=== PATIENT | male | born 1985 | race Caucasian/White ===

== ENCOUNTER 2020-10-20 04:38 | Emergency (ER) | payer OTHER ==
[2020-10-20 05:10] VITALS: PULSE 112
--- NOTE | 2020-10-20 05:11 | ERPHSYRPT ---
- History of Present Illness Time Seen by Provider: 10/20/20 05:08 Historian: patient Exam Limitations: no limitations Physician History: Jose is a 35-year-old type II diabetic and presents with a complaint of rectal pressure and pain from constipation. He has no history of previous constipation or rectal impaction but this is a new situation. He did have a small amount of the passage of stool several hours prior to coming to the ER but still has rectal pain and pressure. He did take a Metformin and a Mountain Dew in order to try to reduce a bowel movement. This did not work. Timing/Duration: today Activities at Onset: none Quality: cramping Abdominal Pain Onset Location: other (A rectal) Pain Radiation: no radiation Severity of Pain-Max: severe Severity of Pain-Current: mild Modifying Factors: Improves With: nothing Previous symptoms: no prior history Allergies/Adverse Reactions: erythromycin base Allergy (Verified 10/20/20 04:41) Hives Penicillins Allergy (Verified 10/20/20 04:41) Hives Home Medications: Metformin HCl 500 mg [Glucophage 500 MG] 500 mg PO BID 10/20/20 [History] - Review of Systems Constitutional: No Fever, No Chills Eyes: No Symptoms Ears, Nose, & Throat: No Symptoms Respiratory: No Cough, No Dyspnea Cardiac: No Chest Pain, No Edema, No Syncope Abdominal/Gastrointestinal: Constipation, Other (Rectal pain), No Abdominal Pain, No Nausea, No Vomiting, No Diarrhea Genitourinary Symptoms: No Dysuria Musculoskeletal: No Back Pain, No Neck Pain Skin: No Rash Neurological: No Dizziness, No Focal Weakness, No Sensory Changes Psychological: No Symptoms Endocrine: No Symptoms All Other Systems: Reviewed and Negative - Past Medical History Neurological History: No Pertinent History ENT History: No Pertinent History Cardiac History: Hypertension Respiratory History: No Pertinent History Endocrine Medical History: No Pertinent History Musculoskeletal History: Arthritis, Fractures GI Medical History: Hernia, Other History: No Pertinent History Psycho-Social History: Attention Deficit Disorder Male Reproductive Disorders: No Pertinent History Other Medical History: Fracture Lt leg 2 years ago & shoulder(as baby). Ball and Socket repair of leg at age 5 - Past Surgical History Past Surgical History: Yes Neuro Surgical History: No Pertinent History Cardiac: No Pertinent History Respiratory: No Pertinent History Gastrointestinal: Hernia Repair Genitourinary: No Pertinent History Musculoskeletal: Orthopedic Surgery Male Surgical History: No Pertinent History - Social History Smoking Status: Never smoker Exposure to second hand smoke: Yes Drug Use: none - Nursing Vital Signs Nursing Vital Signs: Initial Vital Signs Temperature 98.4 F 10/20/20 04:44 Pulse Rate 112 H 10/20/20 04:44 Respiratory Rate 16 10/20/20 04:44 Blood Pressure 121/84 10/20/20 04:44 O2 Sat by Pulse Oximetry 98 10/20/20 04:44 Pain Scale Pain Intensity 6 - Physical Exam General Appearance: moderate distress, alert Eye Exam: PERRL/EOMI, eyes nml inspection Ears, Nose, Throat Exam: normal ENT inspection, pharynx normal, moist mucous membranes Neck Exam: normal inspection, non-tender, supple, full range of motion Respiratory Exam: normal breath sounds, lungs clear, No respiratory distress Cardiovascular Exam: regular rate/rhythm, normal heart sounds Gastrointestinal/Abdomen Exam: soft, No tenderness, No mass Rectal Exam: deferred Back Exam: normal inspection, normal range of motion, No CVA tenderness, No vertebral tenderness Extremity Exam: normal inspection, normal range of motion, pelvis stable Neurologic Exam: alert, oriented x 3, cooperative, normal mood/affect, nml cerebellar function, sensation nml, No motor deficits Skin Exam: normal color, warm, dry - Course Nursing assessment & vital signs reviewed: Yes - Radiology Exams Abdomen X-ray Interpretation: Interpreted by me, Other (KUB after a large bowel movement showed no remaining rectal impaction there is some moderate stool throughout the remainder of the colon.) Ordered Tests: Active Orders 24 hr Category Date Time Status KUB Stat Exams 10/20/20 04:49 Ordered - Progress Progress: improved Progress Note: 10/20/20 05:10 Patient had a large bowel movement while waiting for his x-ray after the large impaction was evacuated he felt much better but we went ahead with a KUB to document no further need for an enema - Departure Departure Disposition: Home Clinical Impression: Fecal impaction Condition: Stable Critical Care Time: No Referrals: RAMAN SILVERMAN NP [Primary Care Provider] - Instructions: Constipation, Adult (DC)
[2020-10-20 05:22] VITALS: BP 138/75; O2SAT 100
--- NOTE | 2020-10-20 08:28 | XRAY ---
Indication: Abnormal stools. Comparison: None KUB nonacute and nonobstructed. Solid organs unremarkable. Osseous structures intact with minimal degenerative spondylosis. Impression: Negative KUB.
== END 2020-10-20 05:20 | disposition home or self-care (01) ==
LOC: ED 04:38
DX: K56.41 Fecal impaction (principal)
CPT/HCPCS: 74018; 99283

== ENCOUNTER 2024-09-17 03:00 | Emergency (ER) | payer OTHER ==
--- NOTE | 2024-09-17 03:09 | ERPHSYRPT ---
- History of Present Illness Source: patient Exam Limitations: no limitations Timing/Duration: day(s) (1 to 2 days ago) Method of Injury: other (No injury) Quality: other (Wheezing constricting) Severity of Pain-Max: moderate Severity of Pain-Current: moderate Modifying Factors: Improves With: movement Associated Symptoms: muscle spasms, No urinary incontinence, No loss of bowel control, No nausea, No vomiting, No lower back pain Previous symptoms: no prior history, no recent treatment Hx Tetanus, Diphtheria Vaccination/Date Given: Yes Hx Influenza Vaccination/Date Given: Yes Hx Pneumococcal Vaccination/Date Given: No <JELLY PERALES - Last Filed: 09/17/24 07:15> <ASHLEY REAGAN - Last Filed: 09/17/24 18:56> - History of Present Illness Time Seen by Provider: 09/17/24 03:09 Physician History: This is a 39-year-old white male patient who arrives to the emergency department via private vehicle accompanied by family and whose primary care provider is nurse practitioner Naomi with a complaint of squeezing/constricting pain around the right upper quadrant, epigastrium and right flank area. Patient's oxygen saturation level was 87% initially on arrival to the emergency department and he was tachycardic. After settling down and laying flat he is oxygen saturation levels on room air was 96%. However his tachycardia has persisted. He, additionally, complains of shortness of breath and coughing up blackish sputum. He denies tobacco use. He denies alcohol use. He denies illicit drug use. Patient has a history of diabetes, peripheral neuropathy, ADD and arthritis. He has no diagnosed history of coronary artery disease. (JELLY PERALES) Allergies/Adverse Reactions: erythromycin base Allergy (Verified 10/20/20 04:41) Hives Penicillins Allergy (Verified 10/20/20 04:41) Hives Home Medications: Dapagliflozin Propanediol [Farxiga] 1 tab PO DAILY 09/17/24 [History] Gabapentin 600 mg PO TID 09/17/24 [History] Hydrocodone/Acetaminophen [Hydrocodone-Acetamin 5-325 mg] 1 tab PO Q4HPRN PRN MDD 6 09/17/24 [History] Ropinirole HCl 0.5 mg [Requip 0.5 MG] 0.25 mg PO HS 09/17/24 [History] Travel Risk - International Travel Have you traveled outside of the country in past 3 weeks: No - Emerging Infectious Disease Are you exhibiting symptoms associated with any current EIDs: Yes Symptoms: Cough: New Onset, Shortness of Breath <JELLY PERALES - Last Filed: 09/17/24 07:15> - Review of Systems Constitutional: Fever Eyes: No Symptoms Ears, Nose, & Throat: No Symptoms Respiratory: Cough, Dyspnea Cardiac: No Symptoms Abdominal/Gastrointestinal: No Symptoms Genitourinary Symptoms: No Symptoms Musculoskeletal: No Symptoms Skin: No Symptoms Neurological: No Symptoms Psychological: No Symptoms Endocrine: No Symptoms Hematologic/Lymphatic: No Symptoms Immunological/Allergic: No Symptoms All Other Systems: Reviewed and Negative <JELLY PERALES - Last Filed: 09/17/24 07:15> - Past Medical History Pertinent Past Medical History: Yes Neurological History: No Pertinent History ENT History: No Pertinent History Cardiac History: Hypertension Respiratory History: No Pertinent History Endocrine Medical History: No Pertinent History Musculoskeletal History: Arthritis, Fractures GI Medical History: Hernia, Other History: No Pertinent History Psycho-Social History: Attention Deficit Disorder Male Reproductive Disorders: No Pertinent History Other Medical History: Fracture Lt leg 2 years ago & shoulder(as baby). Ball and Socket repair of leg at age 5 - Past Surgical History Past Surgical History: Yes Neuro Surgical History: No Pertinent History Cardiac: No Pertinent History Respiratory: No Pertinent History Gastrointestinal: Hernia Repair Genitourinary: No Pertinent History Musculoskeletal: Orthopedic Surgery Male Surgical History: No Pertinent History - Social History Smoking Status: Never smoker Exposure to second hand smoke: Yes Drug Use: none <JELLY PERALES - Last Filed: 09/17/24 07:15> - Physical Exam General Appearance: no apparent distress, alert, anxiety Eye Exam: PERRL/EOMI, eyes nml inspection Ears, Nose, Throat Exam: normal ENT inspection, moist mucous membranes Neck Exam: normal inspection, non-tender, supple, full range of motion Respiratory Exam: lungs clear, airway intact, diminished breath sounds (Bilateral bases), No chest tenderness, No respiratory distress, No accessory muscle use Cardiovascular Exam: tachycardia Gastrointestinal Exam: soft, normal bowel sounds, tenderness (Right upper quadrant to palpation) Rectal Exam: not done Back Exam: normal inspection, normal range of motion, No CVA tenderness, No vertebral tenderness Extremity Exam: normal inspection, normal range of motion, pelvis stable Neurologic Exam: alert, oriented x 3, cooperative, yarn sizer II-XII nml as tested, nml cerebellar function, nml station & gait, sensation nml Skin Exam: normal color, warm, dry Lymphatic Exam: No adenopathy SpO2 Interpretation: normal O2 Delivery: Room Air <JELLY PERALES - Last Filed: 09/17/24 07:15> - Nursing Vital Signs Nursing Vital Signs: Initial Vital Signs Temperature 100.1 F 09/17/24 03:00 Pulse Rate 131 H 09/17/24 03:00 Respiratory Rate 24 09/17/24 03:00 Blood Pressure 182/105 09/17/24 03:00 O2 Sat by Pulse Oximetry 98 09/17/24 03:00 Pain Scale Pain Intensity 3 - Course Nursing assessment & vital signs reviewed: Yes <JELLY PERALES - Last Filed: 09/17/24 07:15> Ordered Tests: Active Orders 24 hr Category Date Time Status Dry Transfer Man STAT Care 09/17/24 03:23 Completed EKG-ER Only STAT Care 09/17/24 03:23 Completed IV Insertion STAT Care 09/17/24 03:23 Completed Oxygen-ED Only Nasal Cannula 2 lpm Care 09/17/24 07:00 Completed Pulse Oximetry (ED) STAT Care 09/17/24 03:23 Completed ABDOMEN AND PELVIS W/0 CONTRAS [CT] Stat Exams 09/17/24 05:23 Completed CHEST WITH CONTRAST [CT] Stat Exams 09/17/24 05:23 Completed AMYLASE Stat Lab 09/17/24 03:41 Completed BLOOD CULTURE Stat Lab 09/17/24 03:47 Received CBC W DIFF Stat Lab 09/17/24 03:41 Completed CMP Stat Lab 09/17/24 03:41 Completed D-DIMER QUANTITATIVE Stat Lab 09/17/24 03:41 Completed LIPASE Stat Lab 09/17/24 03:41 Completed Lactic Acid Stat Lab 09/17/24 03:23 Completed MAGNESIUM Stat Lab 09/17/24 03:41 Completed MONO SCREEN Stat Lab 09/17/24 03:41 Completed NT PRO BNPII Stat Lab 09/17/24 03:41 Completed POCT GLUCOSE Stat Lab 09/17/24 07:47 Completed POCT GLUCOSE Stat Lab 09/17/24 09:26 Completed POCT GLUCOSE Stat Lab 09/17/24 10:54 Completed PROCALCITONIN Stat Lab 09/17/24 03:41 Completed TROPONIN Q4H Lab 09/17/24 03:41 Completed TROPONIN Q4H Lab 09/17/24 07:36 Completed UA W/RFX UR CULTURE Stat Lab 09/17/24 06:55 Completed VBG [VENOUS BLOOD GAS] Stat Lab 09/17/24 07:43 Completed Medication Summary Discontinued Medications Generic Name Dose Route Start Last Admin Trade Name Bill PRN Reason Stop Dose Admin Acetaminophen 650 mg 09/17/24 06:46 09/17/24 06:58 Acetaminophen 325 Mg Tablet PO 09/17/24 06:47 650 mg STAT ONE Administration Acetaminophen Confirm 09/17/24 06:56 Acetaminophen 325 Mg Tablet Administered 09/17/24 06:57 Dose 650 mg .ROUTE .STK-MED ONE Sodium Chloride 1,000 mls @ 100 mls/hr 09/17/24 03:30 09/17/24 03:37 Sodium Chloride 0.9% 1000 Ml IV 10/17/24 03:29 100 mls/hr .Q10H GEOVANNA Administration Levofloxacin/Dextrose 750 mg in 150 mls @ 100 mls/hr 09/17/24 07:46 09/17/24 10:00 Levofloxacin 750mg/150ml D5w IV 09/17/24 09:15 Infused STAT STA Infusion Metronidazole 500 mg in 100 mls @ 200 mls/hr 09/17/24 07:47 09/17/24 08:22 Flagyl 500 Mg Ivpb IV 09/17/24 08:16 Infused STAT STA Infusion Metronidazole Confirm 09/17/24 07:49 Flagyl 500 Mg Ivpb Administered 09/17/24 07:50 Dose 500 mg in 100 mls @ ud IV .STK-MED ONE Levofloxacin/Dextrose Confirm 09/17/24 08:24 Levofloxacin 500mg/100ml D5w Administered 09/17/24 08:25 Dose 500 mg in 100 mls @ ud IV .STK-MED ONE Levofloxacin/Dextrose Confirm 09/17/24 08:24 Levaquin 250mg/50ml D5w Administered 09/17/24 08:25 Dose 250 mg in 50 mls @ ud IV .STK-MED ONE Sodium Chloride Confirm 09/17/24 03:36 Sodium Chloride 0.9% 1000 Ml Administered 09/17/24 03:37 Dose 1,000 mls @ ud .ROUTE .STK-MED ONE Insulin Human Lispro 10 unit 09/17/24 07:48 09/17/24 07:52 Insulin Lispro 1 Unit SQ 09/17/24 07:49 10 unit STAT ONE Administration Insulin Human Lispro Confirm 09/17/24 07:51 Insulin Lispro 1 Unit Administered 09/17/24 07:52 Dose 10 unit .ROUTE .STK-MED ONE Morphine Sulfate 4 mg 09/17/24 06:52 09/17/24 06:58 Morphine Sulfate 4 Mg/Ml Injection IV 09/17/24 06:53 4 mg STAT ONE Administration Morphine Sulfate Confirm 09/17/24 06:56 Morphine Sulfate 4 Mg/Ml Injection Administered 09/17/24 06:57 Dose 4 mg .ROUTE .STK-MED ONE Morphine Sulfate 2 mg 09/17/24 08:30 09/17/24 08:37 Morphine Sulfate 2 Mg/Ml Inj IV 09/17/24 08:31 2 mg STAT ONE Administration Morphine Sulfate Confirm 09/17/24 08:37 Morphine Sulfate 2 Mg/Ml Inj Administered 09/17/24 08:38 Dose 2 mg .ROUTE .STK-MED ONE Morphine Sulfate 2 mg 09/17/24 10:22 09/17/24 10:25 Morphine Sulfate 2 Mg/Ml Inj IV 09/17/24 10:23 2 mg STAT ONE Administration Morphine Sulfate Confirm 09/17/24 10:24 Morphine Sulfate 2 Mg/Ml Inj Administered 09/17/24 10:25 Dose 2 mg .ROUTE .STK-MED ONE Ondansetron HCl 4 mg 09/17/24 06:52 09/17/24 06:58 Ondansetron Hcl 4 Mg/2 Ml Vial IV 09/17/24 06:53 4 mg STAT ONE Administration Ondansetron HCl Confirm 09/17/24 06:56 Ondansetron Hcl 4 Mg/2 Ml Vial Administered 09/17/24 06:57 Dose 4 mg .ROUTE .STK-MED ONE Lab/Rad Data: Laboratory Result Diagrams 09/17/24 03:41 09/17/24 03:41 Laboratory Results 09/17/24 09/17/24 09/17/24 Range/Units 10:54 09:26 07:47 WBC (4.23-9.07) x10^3/uL RBC (4.63-6.08) x10^6/uL Hgb (13.7-17.5) g/dL Hct (40.1-51.0) % MCV (79.0-92.2) fL MCH (25.7-32.2) pg MCHC (32.3-36.5) g/dL RDW (11.6-14.4) % Plt Count (163-337) x10^3/uL MPV (9.4-12.4) fL Gran % (34.0-67.9) % Immature Gran % (Auto) (0.001-0.429) % Nucleat RBC Rel Count (0.00-0.2) % Eos # (Auto) (0.04-0.54) x10^3/uL Immature Gran # (Auto) (0.001-0.031) x10^3u/L Absolute Lymphs (auto) (1.32-3.57) x10^3/uL Absolute Monos (auto) (0.30-0.82) x10^3/uL Absolute Nucleated RBC (0.00-0.012) x10^3u/L Lymphocytes % (21.8-53.1) % Monocytes % (5.3-12.2) % Eosinophils % (0.8-7.0) % Basophils % (0.2-1.2) % Absolute Granulocytes (1.78-5.38) x10^3/uL Basophils # (0.01-0.08) x10^3/uL D-Dimer (0.0-0.50) mg/L pO2/FiO2 Ratio % VBG pH (7.32-7.42) VBG pCO2 at Pat Temp (42-55) mm/Hg VBG pO2 at Pat Temp (25-40) mm/Hg VBG HCO3 (22-28) meq/L VBG O2 Sat (Juan) (95-100) VBG Base Excess (-2.0-2.0) VBG Hemoglobin VBG Carboxyhemoglobin (0.0-6.9) % T HGB POC Potassium (3.5-5.1) Sodium (135-145) mmol/L Potassium (3.5-5.1) mmol/L Chloride (98-107) mmol/L Carbon Dioxide (22-30) mmol/L Anion Gap (5-15) MEQ/L BUN (9-20) mg/dL Creatinine (0.66-1.25) mg/dL Estimated GFR ML/MIN Glucose (74-106) mg/dL POC Glucometer 174 H 196 H 258 H (74 to 106) mg/dL Lactic Acid (0.4-2.0) Calcium (8.4-10.2) mg/dL Magnesium (1.6-2.3) mg/dL Total Bilirubin (0.2-1.3) mg/dL AST (17-59) U/L ALT (0-50) U/L Alkaline Phosphatase (38-126) U/L Troponin I (0.000-0.033) ng/mL NT-Pro-B Natriuret Pep (<300) pg/mL Serum Total Protein (6.3-8.2) g/dL Albumin (3.5-5.0) g/dL Amylase (30-110) U/L Lipase (23-300) U/L Procalcitonin (0.030-0.080) ng/mL Urine Color (Yellow) Urine Appearance (Clear) Urine pH (4.6-8.0) Ur Specific [place] (1.005-1.030) Urine Protein (Negative) Urine Glucose (UA) (Negative) mg/dL Urine Ketones (Negative) Urine Blood (Negative) Urine Nitrite (Negative) Urine Bilirubin (Negative) Urine Urobilinogen (0.2) mg/dL Ur Leukocyte Esterase (Negative) U Hyaline Cast (Auto) (0-2) /LPF Urine Microscopic RBC (0-5) /HPF Urine Microscopic WBC (0-5) /HPF Ur Epithelial Cells (None Seen) /HPF Urine Bacteria (None Seen) /HPF Urine Culture Reflexed (NO) Monoscreen (NEGATIVE) Influenza Type A Ag (NEGATIVE) Influenza Type B Ag (NEGATIVE) RSV (PCR) (NEGATIVE) SARS-CoV-2 (PCR) (NEGATIVE) 09/17/24 09/17/24 09/17/24 Range/Units 07:43 07:36 06:55 WBC (4.23-9.07) x10^3/uL RBC (4.63-6.08) x10^6/uL Hgb (13.7-17.5) g/dL Hct (40.1-51.0) % MCV (79.0-92.2) fL MCH (25.7-32.2) pg MCHC (32.3-36.5) g/dL RDW (11.6-14.4) % Plt Count (163-337) x10^3/uL MPV (9.4-12.4) fL Gran % (34.0-67.9) % Immature Gran % (Auto) (0.001-0.429) % Nucleat RBC Rel Count (0.00-0.2) % Eos # (Auto) (0.04-0.54) x10^3/uL Immature Gran # (Auto) (0.001-0.031) x10^3u/L Absolute Lymphs (auto) (1.32-3.57) x10^3/uL Absolute Monos (auto) (0.30-0.82) x10^3/uL Absolute Nucleated RBC (0.00-0.012) x10^3u/L Lymphocytes % (21.8-53.1) % Monocytes % (5.3-12.2) % Eosinophils % (0.8-7.0) % Basophils % (0.2-1.2) % Absolute Granulocytes (1.78-5.38) x10^3/uL Basophils # (0.01-0.08) x10^3/uL D-Dimer (0.0-0.50) mg/L pO2/FiO2 Ratio 28.0 % VBG pH 7.44 H (7.32-7.42) VBG pCO2 at Pat Temp 40 L (42-55) mm/Hg VBG pO2 at Pat Temp 76 H (25-40) mm/Hg VBG HCO3 27.2 (22-28) meq/L VBG O2 Sat (Juan) 97.9 (95-100) VBG Base Excess 2.8 H (-2.0-2.0) VBG Hemoglobin 14.0 VBG Carboxyhemoglobin 1.9 (0.0-6.9) % T HGB POC Potassium 4.3 (3.5-5.1) Sodium (135-145) mmol/L Potassium (3.5-5.1) mmol/L Chloride (98-107) mmol/L Carbon Dioxide (22-30) mmol/L Anion Gap (5-15) MEQ/L BUN (9-20) mg/dL Creatinine (0.66-1.25) mg/dL Estimated GFR ML/MIN Glucose (74-106) mg/dL POC Glucometer (74 to 106) mg/dL Lactic Acid (0.4-2.0) Calcium (8.4-10.2) mg/dL Magnesium (1.6-2.3) mg/dL Total Bilirubin (0.2-1.3) mg/dL AST (17-59) U/L ALT (0-50) U/L Alkaline Phosphatase (38-126) U/L Troponin I < 0.012 (0.000-0.033) ng/mL NT-Pro-B Natriuret Pep (<300) pg/mL Serum Total Protein (6.3-8.2) g/dL Albumin (3.5-5.0) g/dL Amylase (30-110) U/L Lipase (23-300) U/L Procalcitonin (0.030-0.080) ng/mL Urine Color Yellow (Yellow) Urine Appearance Clear (Clear) Urine pH 7.5 (4.6-8.0) Ur Specific [place] >=1.030 A (1.005-1.030) Urine Protein Trace A (Negative) Urine Glucose (UA) 500 A (Negative) mg/dL Urine Ketones Negative (Negative) Urine Blood Negative (Negative) Urine Nitrite Negative (Negative) Urine Bilirubin Negative (Negative) Urine Urobilinogen 4.0 A (0.2) mg/dL Ur Leukocyte Esterase Negative (Negative) U Hyaline Cast (Auto) NONE SEEN (0-2) /LPF Urine Microscopic RBC 0-2 (0-5) /HPF Urine Microscopic WBC 0-2 (0-5) /HPF Ur Epithelial Cells None Seen (None Seen) /HPF Urine Bacteria None Seen (None Seen) /HPF Urine Culture Reflexed NO (NO) Monoscreen (NEGATIVE) Influenza Type A Ag (NEGATIVE) Influenza Type B Ag (NEGATIVE) RSV (PCR) (NEGATIVE) SARS-CoV-2 (PCR) (NEGATIVE) 03/09/17/24 09/17/24 Range/Units 03:41 03:41 03:41 WBC (4.23-9.07) x10^3/uL RBC (4.63-6.08) x10^6/uL Hgb (13.7-17.5) g/dL Hct (40.1-51.0) % MCV (79.0-92.2) fL MCH (25.7-32.2) pg MCHC (32.3-36.5) g/dL RDW (11.6-14.4) % Plt Count (163-337) x10^3/uL MPV (9.4-12.4) fL Gran % (34.0-67.9) % Immature Gran % (Auto) (0.001-0.429) % Nucleat RBC Rel Count (0.00-0.2) % Eos # (Auto) (0.04-0.54) x10^3/uL Immature Gran # (Auto) (0.001-0.031) x10^3u/L Absolute Lymphs (auto) (1.32-3.57) x10^3/uL Absolute Monos (auto) (0.30-0.82) x10^3/uL Absolute Nucleated RBC (0.00-0.012) x10^3u/L Lymphocytes % (21.8-53.1) % Monocytes % (5.3-12.2) % Eosinophils % (0.8-7.0) % Basophils % (0.2-1.2) % Absolute Granulocytes (1.78-5.38) x10^3/uL Basophils # (0.01-0.08) x10^3/uL D-Dimer 1.50 H* (0.0-0.50) mg/L pO2/FiO2 Ratio % VBG pH (7.32-7.42) VBG pCO2 at Pat Temp (42-55) mm/Hg VBG pO2 at Pat Temp (25-40) mm/Hg VBG HCO3 (22-28) meq/L VBG O2 Sat (Juan) (95-100) VBG Base Excess (-2.0-2.0) VBG Hemoglobin VBG Carboxyhemoglobin (0.0-6.9) % T HGB POC Potassium (3.5-5.1) Sodium (135-145) mmol/L Potassium (3.5-5.1) mmol/L Chloride (98-107) mmol/L Carbon Dioxide (22-30) mmol/L Anion Gap (5-15) MEQ/L BUN (9-20) mg/dL Creatinine (0.66-1.25) mg/dL Estimated GFR ML/MIN Glucose (74-106) mg/dL POC Glucometer (74 to 106) mg/dL Lactic Acid (0.4-2.0) Calcium (8.4-10.2) mg/dL Magnesium (1.6-2.3) mg/dL Total Bilirubin (0.2-1.3) mg/dL AST (17-59) U/L ALT (0-50) U/L Alkaline Phosphatase (38-126) U/L Troponin I (0.000-0.033) ng/mL NT-Pro-B Natriuret Pep (<300) pg/mL Serum Total Protein (6.3-8.2) g/dL Albumin (3.5-5.0) g/dL Amylase (30-110) U/L Lipase (23-300) U/L Procalcitonin 0.107 H (0.030-0.080) ng/mL Urine Color (Yellow) Urine Appearance (Clear) Urine pH (4.6-8.0) Ur Specific [place] (1.005-1.030) Urine Protein (Negative) Urine Glucose (UA) (Negative) mg/dL Urine Ketones (Negative) Urine Blood (Negative) Urine Nitrite (Negative) Urine Bilirubin (Negative) Urine Urobilinogen (0.2) mg/dL Ur Leukocyte Esterase (Negative) U Hyaline Cast (Auto) (0-2) /LPF Urine Microscopic RBC (0-5) /HPF Urine Microscopic WBC (0-5) /HPF Ur Epithelial Cells (None Seen) /HPF Urine Bacteria (None Seen) /HPF Urine Culture Reflexed (NO) Monoscreen (NEGATIVE) Influenza Type A Ag NEGATIVE (NEGATIVE) Influenza Type B Ag NEGATIVE (NEGATIVE) RSV (PCR) NEGATIVE (NEGATIVE) SARS-CoV-2 (PCR) NEGATIVE (NEGATIVE) 09/17/24 09/17/24 09/17/24 Range/Units 03:41 03:41 03:41 WBC (4.23-9.07) x10^3/uL RBC (4.63-6.08) x10^6/uL Hgb (13.7-17.5) g/dL Hct (40.1-51.0) % MCV (79.0-92.2) fL MCH (25.7-32.2) pg MCHC (32.3-36.5) g/dL RDW (11.6-14.4) % Plt Count (163-337) x10^3/uL MPV (9.4-12.4) fL Gran % (34.0-67.9) % Immature Gran % (Auto) (0.001-0.429) % Nucleat RBC Rel Count (0.00-0.2) % Eos # (Auto) (0.04-0.54) x10^3/uL Immature Gran # (Auto) (0.001-0.031) x10^3u/L Absolute Lymphs (auto) (1.32-3.57) x10^3/uL Absolute Monos (auto) (0.30-0.82) x10^3/uL Absolute Nucleated RBC (0.00-0.012) x10^3u/L Lymphocytes % (21.8-53.1) % Monocytes % (5.3-12.2) % Eosinophils % (0.8-7.0) % Basophils % (0.2-1.2) % Absolute Granulocytes (1.78-5.38) x10^3/uL Basophils # (0.01-0.08) x10^3/uL D-Dimer (0.0-0.50) mg/L pO2/FiO2 Ratio % VBG pH (7.32-7.42) VBG pCO2 at Pat Temp (42-55) mm/Hg VBG pO2 at Pat Temp (25-40) mm/Hg VBG HCO3 (22-28) meq/L VBG O2 Sat (Juan) (95-100) VBG Base Excess (-2.0-2.0) VBG Hemoglobin VBG Carboxyhemoglobin (0.0-6.9) % T HGB POC Potassium (3.5-5.1) Sodium 138 (135-145) mmol/L Potassium 4.5 (3.5-5.1) mmol/L Chloride 96 L (98-107) mmol/L Carbon Dioxide 31 H (22-30) mmol/L Anion Gap 15.4 H (5-15) MEQ/L BUN 10 (9-20) mg/dL Creatinine 0.74 (0.66-1.25) mg/dL Estimated GFR 118.2 ML/MIN Glucose 307 H (74-106) mg/dL POC Glucometer (74 to 106) mg/dL Lactic Acid (0.4-2.0) Calcium 9.2 (8.4-10.2) mg/dL Magnesium 2.2 (1.6-2.3) mg/dL Total Bilirubin 0.70 (0.2-1.3) mg/dL AST 33 (17-59) U/L ALT 27 (0-50) U/L Alkaline Phosphatase 151 H (38-126) U/L Troponin I < 0.012 (0.000-0.033) ng/mL NT-Pro-B Natriuret Pep < 20.0 (<300) pg/mL Serum Total Protein 8.2 (6.3-8.2) g/dL Albumin 4.4 (3.5-5.0) g/dL Amylase 38 (30-110) U/L Lipase 52 (23-300) U/L Procalcitonin (0.030-0.080) ng/mL Urine Color (Yellow) Urine Appearance (Clear) Urine pH (4.6-8.0) Ur Specific [place] (1.005-1.030) Urine Protein (Negative) Urine Glucose (UA) (Negative) mg/dL Urine Ketones (Negative) Urine Blood (Negative) Urine Nitrite (Negative) Urine Bilirubin (Negative) Urine Urobilinogen (0.2) mg/dL Ur Leukocyte Esterase (Negative) U Hyaline Cast (Auto) (0-2) /LPF Urine Microscopic RBC (0-5) /HPF Urine Microscopic WBC (0-5) /HPF Ur Epithelial Cells (None Seen) /HPF Urine Bacteria (None Seen) /HPF Urine Culture Reflexed (NO) Monoscreen NEGATIVE (NEGATIVE) Influenza Type A Ag (NEGATIVE) Influenza Type B Ag (NEGATIVE) RSV (PCR) (NEGATIVE) SARS-CoV-2 (PCR) (NEGATIVE) 09/17/24 09/17/24 Range/Units 03:41 03:23 WBC 15.3 H (4.23-9.07) x10^3/uL RBC 5.58 (4.63-6.08) x10^6/uL Hgb 14.7 (13.7-17.5) g/dL Hct 45.4 (40.1-51.0) % MCV 81.4 (79.0-92.2) fL MCH 26.3 (25.7-32.2) pg MCHC 32.4 (32.3-36.5) g/dL RDW 13.1 (11.6-14.4) % Plt Count 289 (163-337) x10^3/uL MPV 9.5 (9.4-12.4) fL Gran % 79.5 H (34.0-67.9) % Immature Gran % (Auto) 0.4 (0.001-0.429) % Nucleat RBC Rel Count 0.0 (0.00-0.2) % Eos # (Auto) 0.16 (0.04-0.54) x10^3/uL Immature Gran # (Auto) 0.06 H (0.001-0.031) x10^3u/L Absolute Lymphs (auto) 1.72 (1.32-3.57) x10^3/uL Absolute Monos (auto) 1.11 H (0.30-0.82) x10^3/uL Absolute Nucleated RBC 0.00 (0.00-0.012) x10^3u/L Lymphocytes % 11.3 L (21.8-53.1) % Monocytes % 7.3 (5.3-12.2) % Eosinophils % 1.0 (0.8-7.0) % Basophils % 0.5 (0.2-1.2) % Absolute Granulocytes 12.16 H (1.78-5.38) x10^3/uL Basophils # 0.07 (0.01-0.08) x10^3/uL D-Dimer (0.0-0.50) mg/L pO2/FiO2 Ratio % VBG pH (7.32-7.42) VBG pCO2 at Pat Temp (42-55) mm/Hg VBG pO2 at Pat Temp (25-40) mm/Hg VBG HCO3 (22-28) meq/L VBG O2 Sat (Juan) (95-100) VBG Base Excess (-2.0-2.0) VBG Hemoglobin VBG Carboxyhemoglobin (0.0-6.9) % T HGB POC Potassium (3.5-5.1) Sodium (135-145) mmol/L Potassium (3.5-5.1) mmol/L Chloride (98-107) mmol/L Carbon Dioxide (22-30) mmol/L Anion Gap (5-15) MEQ/L BUN (9-20) mg/dL Creatinine (0.66-1.25) mg/dL Estimated GFR ML/MIN Glucose (74-106) mg/dL POC Glucometer (74 to 106) mg/dL Lactic Acid 1.5 (0.4-2.0) Calcium (8.4-10.2) mg/dL Magnesium (1.6-2.3) mg/dL Total Bilirubin (0.2-1.3) mg/dL AST (17-59) U/L ALT (0-50) U/L Alkaline Phosphatase (38-126) U/L Troponin I (0.000-0.033) ng/mL NT-Pro-B Natriuret Pep (<300) pg/mL Serum Total Protein (6.3-8.2) g/dL Albumin (3.5-5.0) g/dL Amylase (30-110) U/L Lipase (23-300) U/L Procalcitonin (0.030-0.080) ng/mL Urine Color (Yellow) Urine Appearance (Clear) Urine pH (4.6-8.0) Ur Specific [place] (1.005-1.030) Urine Protein (Negative) Urine Glucose (UA) (Negative) mg/dL Urine Ketones (Negative) Urine Blood (Negative) Urine Nitrite (Negative) Urine Bilirubin (Negative) Urine Urobilinogen (0.2) mg/dL Ur Leukocyte Esterase (Negative) U Hyaline Cast (Auto) (0-2) /LPF Urine Microscopic RBC (0-5) /HPF Urine Microscopic WBC (0-5) /HPF Ur Epithelial Cells (None Seen) /HPF Urine Bacteria (None Seen) /HPF Urine Culture Reflexed (NO) Monoscreen (NEGATIVE) Influenza Type A Ag (NEGATIVE) Influenza Type B Ag (NEGATIVE) RSV (PCR) (NEGATIVE) SARS-CoV-2 (PCR) (NEGATIVE) - Progress Progress: improved, pain not gone completely Counseled pt/family regarding: lab results, diagnosis, rad results <JELLY PERALES - Last Filed: 09/17/24 07:15> - Progress Discussed with DrDougie: Other (Vianney) Will see patient in: hospital (full admit) <ASHLEY REAGAN - Last Filed: 09/17/24 18:56> - Progress Progress Note: 09/17/24 03:33 My medical decision making and the assignment of moderate complexity to this patient's medical issue today is based on review of the patient's past medical history, review of the patient's medication list, history present illness and physical findings on examination. The workup in this patient includes placement of intravenous line, infusion of low rate crystalloid solution, CBC, CMP, amylase, lipase, troponin level, twelve-lead EKG, procalcitonin level, D-dimer level, magnesium level. If the D-dimer is elevated we will perform a CT scan of the chest with contrast. If the D-dimer is normal we will perform a CT scan of the chest without contrast as well as a CT scan of the abdomen pelvis without contrast. Differential diagnosis includes but is not limited to myocardial infarction, pulmonary embolus, pneumonia, electrolyte abnormalities, arrhythmia 09/17/24 07:15 I interpreted the patient's laboratory data results. Patient has a leukocytosis, hyperglycemia, elevated D-dimer, the remainder of the labs that have returned show no acute, emergent medical issue. The urinalysis is pending. The CT scan of the abdomen pelvis without contrast was interpreted by the radiologist and I reviewed the impression. The impression states dilated appendix without periappendiceal fat stranding. There is right lower lobe consolidation. There is a large right inguinal hernia containing fat and small fat-containing umbilical hernia. I am transferring care of this patient to Dr. Reagan at shift change. We have discussed the results of the testing that has returned. He is going to follow- up on the outstanding tests results and make final disposition. (JELLY PERALES) 09/17/24 07:48 Assumed care at 0700 with CTA chest/abd/pelvis pending. They have resulted and show RLL infiltrate with central necrosis concerning for abscess, right minimal pleural effusion, no PE, appendix dilated to 10mm without periappendiceal fat stranding and no RLQ abd pain, large right inguinal hernia containing fat and a small fat containing umbilical hernia. He is diabetic with glucose 307 today, gap 15.4, K 4.5. Will order ABG to check pH. Repeat POC shows glucose of 258 so 10u SSI given. Patient has allergy to PCN to Levofloxacin and Flagyl started today. We don't have IR available on weekends at our facility so transfer request to [facility] made today. I spoke with Dr. Faith who acccepts for admission at 0755. (ASHLEY REAGAN) - Departure Departure Disposition: Observation Critical Care Time: Yes Critical Care Time(excluding separately billable procedures): Critical 30-74 mins (45) <JELLY PERALES - Last Filed: 09/17/24 07:15> - Departure Departure Disposition: Transfer <ASHLEY REAGAN - Last Filed: 09/17/24 18:56> - Departure Clinical Impression: Leukocytosis, Tachycardia, Hyperglycemia, Fever, Elevated d-dimer, Right lower lobe consolidation, Abscess of lower lobe of right lung with pneumonia Condition: Fair Referrals: RAMAN SILVERMAN NP [Primary Care Provider] - Follow up/PCP as directed Instructions: Pneumonia, Adult (DC)
[2024-09-17 03:18] VITALS: TEMP 100.1
[2024-09-17] MEDS ORDERED: Sodium Chloride 0.9% 1000 ML 1,000 ML ONE (03:36)
[2024-09-17] MEDS: Sodium Chloride 0.9% 1000 ML 1,000 ML IV SCH (03:37)
[2024-09-17 04:12] LABS: Absolute Neutrophil Ct (ANC) 12.16 x10^3/uL (1.78-5.38); BASOPHIL % 0.5 % (0.2-1.2); Basophil (Absolute #) 0.07 x10^3/uL (0.01-0.08); Eosinophil (Absolute #) 0.16 x10^3/uL (0.04-0.54); Hematocrit 45.4 % (40.1-51.0); Hemoglobin 14.7 g/dL (13.7-17.5); IMMATURE GRAN # 0.06 x10^3u/L (0.001-0.031); IMMATURE GRAN % 0.4 % (0.001-0.429); Lymphocyte (Absolute #) 1.72 x10^3/uL (1.32-3.57); Lymphocytes % 11.3 % (21.8-53.1); Mean Cell Volume 81.4 fL (79.0-92.2); Mean Corpuscular Hemoglobin 26.3 pg (25.7-32.2); Mean Corpuscular Hgb Concent. 32.4 g/dL (32.3-36.5); Mean Platelet Volume 9.5 fL (9.4-12.4); Monocyte (Absolute #) 1.11 x10^3/uL (0.30-0.82); Monocytes % 7.3 % (5.3-12.2); Neutrophil % 79.5 % (34.0-67.9); Platelet Count 289 x10^3/uL (163-337); Red Blood Count 5.58 x10^6/uL (4.63-6.08); Red Cell Distribution Width 13.1 % (11.6-14.4); White Blood Count 15.3 x10^3/uL (4.23-9.07)
[2024-09-17 04:18] LABS: ALBUMIN 4.4 g/dL (3.5-5.0); ALKALINE PHOSPHATASE 151 U/L (38-126); AMYLASE 38 U/L (30-110); ANION GAP 15.4 MEQ/L (5-15); BLOOD UREA NITROGEN 10 mg/dL (9-20); CHLORIDE 96 mmol/L (98-107); Calcium 9.2 mg/dL (8.4-10.2); Carbon Dioxide 31 mmol/L (22-30); Creatinine 1 0.74 mg/dL (0.66-1.25); EST GLOMERULAR FILTRATION RATE 118.2 ML/MIN; Glucose 307 mg/dL (74-106); LIPASE 52 U/L (23-300); MAGNESIUM 2.2 mg/dL (1.6-2.3); NT PRO BNPII < 20.0 pg/mL (<300); Potassium 4.5 mmol/L (3.5-5.1); SGOT/AST 33 U/L (17-59); SGPT/ALT 27 U/L (0-50); SODIUM 138 mmol/L (135-145); Total Protein 8.2 g/dL (6.3-8.2)
[2024-09-17 04:31] LABS: INFLUENZA A NEGATIVE (NEGATIVE); INFLUENZA B NEGATIVE (NEGATIVE); RESPIRATORY SYNCTIAL VIRUS NEGATIVE (NEGATIVE); SARS-CoV-2 Xpert Express NEGATIVE (NEGATIVE)
[2024-09-17] MEDS ORDERED: MORPHINE SULFATE 4 MG INJ ONE (06:56)
[2024-09-17] MEDS ORDERED: Zofran 4 MG/2 ML VIAL ONE (06:56)
[2024-09-17] MEDS ORDERED: TYLENOL 325 MG ONE (06:56)
[2024-09-17] MEDS: Zofran 4 MG/2 ML VIAL IV ONE (06:58)
[2024-09-17] MEDS: TYLENOL 325 MG PO ONE (06:58)
[2024-09-17] MEDS: MORPHINE SULFATE 4 MG INJ IV ONE (06:58)
--- NOTE | 2024-09-17 07:00 | XRAY ---
CLINICAL HISTORY: BACK/ABD. PAIN COMPARISON: No prior studies are available for comparison. TECHNIQUE: Non-contrast CT of the abdomen and pelvis was performed, with the following protocol: axial images, and reconstructed coronal and sagittal images. One of the following dose reduction techniques was utilized for this exam: Automated exposure control, adjustment of the mA and/or kV according to patient size, and use of iterative reconstruction. CTDI: 10.68 mGy.cm. DLP: 632.14 mGy.cm. FINDINGS: Abdomen: Liver: Normal in size, shape, and density. No focal lesions, cysts, or masses were identified. Gallbladder and Biliary System: The gallbladder is normal in size and shape. No wall thickening, pericholecystic fluid, or gallstones were identified. Pancreas: Pancreatic head, body, and tail are visualized and appear normal in size and density. No pancreatic masses or calcifications were noted. Spleen: Normal in size, shape, and density. No splenic lesions or masses were identified. Appendix: The appendix is dilated in diameter measuring 10 mm at its tip, without ruchi appendiceal fat stranding, clinical correlation is advised. No evidence of appendiceal abscess or perforation. Kidneys and Adrenal Glands: Bilateral tiny gravels. Otherwise, Both kidneys are normal in size, shape, and position. Cortical thickness is within normal limits. No hydronephrosis. Adrenal glands are unremarkable. Abdominal Aorta and Vessels: The abdominal aorta and major branches are patent without evidence of an aneurysm or significant atherosclerosis. Pelvis: Urinary Bladder: Normal in contour and wall thickness. No intraluminal lesions. Prostate: Normal in size and contour. No masses or abnormal thickening. Seminal Vesicles: Normal appearance without abnormal enlargement or mass. Peritoneal and Retroperitoneal Structures: No free fluid or abnormal fluid collections were identified within the abdomen or pelvis. No lymphadenopathy was noted. Bowel: The visualized bowel loops are normal in caliber and appearance. No evidence of bowel obstruction or wall thickening. Bones and Soft Tissues: Pelvic bones and soft tissues are unremarkable. No fractures or abnormal masses were identified. A large right inguinal hernia, containing fat. A small fat-containing umbilical hernia. Right lower lung lobe consolidation. IMPRESSION: 1. The appendix is dilated in diameter measuring 10mm, without ruchi appendiceal fat stranding, clinical correlation is advised. 2. Right lower lung lobe consolidation. 3. Bilateral renal non-obstructive tiny gravels. 4. A large right inguinal hernia, containing fat. 5. A small fat-containing umbilical hernia. Electronically Signed by: Victor M Neff MD. (09/17/2024 06:54:49 EDT)
--- NOTE | 2024-09-17 07:24 | XRAY ---
CLINICAL HISTORY: ELEVATED D-DIMER/SOB COMPARISON: none TECHNIQUE: Contiguous axial CT images of the chest were acquired with and without administration of intravenous contrast (100ml Isovue [id number]). Coronal and sagittal reconstructions were obtained. One of the following dose reduction techniques were utilized for this exam: Automated exposure control, adjustment of the mA and/or kV according to patient size, use of iterative reconstruction. FINDINGS: Lungs: A right lower lobe ill-defined area of patchy consolidation with central rounded hypodensity/ non-enhancing area measuring [id number] with few air foci inside, the possibility of infectious process with suggested central necrosis (possibly abscess formation) should be considered, clinical correlation, short interval follow-up is needed Right-sided minimal pleural effusion with bilateral pleural thickening. Mediastinum: No mediastinal mass or abnormal lymphadenopathy. Normal appearance of the thymus. Hilar Structures: Normal size and configuration, no enlargement. Heart and Great Vessels: Mild cardiomegaly No pericardial effusion. Normal caliber and course of the thoracic aorta and other great vessels. No significant atherosclerosis or aneurysm. Pulmonary Arteries: No evidence of pulmonary embolism. Normal size and course of the pulmonary arteries. Bones: No fractures or lytic/sclerotic lesions. Normal bone density and alignment. No evidence of rib fractures. Chest Wall: No masses or soft tissue abnormalities. Upper Abdomen: Visualized portions of the liver, spleen, pancreas, adrenal glands, and kidneys are normal. No abnormalities noted in the visualized upper abdominal organs. Thyroid: Normal size and morphology. No nodules or masses. Esophagus: Normal course and caliber. No masses or dilatation. IMPRESSION: 1. No evidence of pulmonary embolism 2. A right lower lobe ill-defined area of patchy consolidation with central rounded hypodensity/ non-enhancing area measuring [id number] with few air foci inside, the possibility of an infectious process with suggested central necrosis (possibly abscess formation) should be considered, clinical correlation, short interval follow-up is needed 3. Right-sided minimal pleural effusion with bilateral pleural thickening. Electronically Signed by: Victor M Neff MD. (09/17/2024 07:19:38 EDT)
[2024-09-17 07:29] LABS: Appearance Clear (Clear); Bacteria None Seen /HPF (None Seen); Bilirubin Negative (Negative); Blood Negative (Negative); Epithelial Cells None Seen /HPF (None Seen); Glucose, Urine 500 mg/dL (Negative); Hyaline Casts NONE SEEN /LPF (0-2); Ketones Negative (Negative); Leukocyte Esterase Negative (Negative); Nitrite Negative (Negative); Ph 7.5 (4.6-8.0); Protein,Urine Dip Trace (Negative); RBC 0-2 /HPF (0-5); Specific Gravity >=1.030 (1.005-1.030); WBC 0-2 /HPF (0-5)
[2024-09-17] MEDS ORDERED: FLAGYL 500 MG IVPB 500 MG/100 ML BAG IV ONE (07:49)
[2024-09-17] MEDS: FLAGYL 500 MG IVPB 500 MG/100 ML BAG IV STA (07:50)
[2024-09-17] MEDS ORDERED: HUMALOG ONE (07:51)
[2024-09-17] MEDS: HUMALOG SQ ONE (07:52)
[2024-09-17 08:04] LABS: VBG BASE EXCESS 2.8 (-2.0-2.0); VBG CARBOXYHEMOGLOBIN 1.9 % T HGB (0.0-6.9); VBG HCO3- 27.2 meq/L (22-28); VBG O2 SATURATION 97.9 (95-100); VBG POTASSIUM 4.3 (3.5-5.1); VBG pH 7.44 (7.32-7.42)
[2024-09-17] MEDS ORDERED: Levofloxacin 500MG/100ML D5W 500 MG/100 ML BAG IV ONE (08:24)
[2024-09-17] MEDS ORDERED: Levaquin 250MG/50ML D5W 250 MG/50 ML BAG IV ONE (08:24)
[2024-09-17] MEDS: LEVOFLOXACIN 750MG/150ML D5W 750 MG/150 ML BAG IV STA (08:25)
[2024-09-17] MEDS: MORPHINE SULFATE 2 MG INJ IV ONE ×2 (08:37→10:25)
[2024-09-17] MEDS ORDERED: MORPHINE SULFATE 2 MG INJ ONE ×2 (08:37→10:24)
[2024-09-17 09:35] VITALS: O2SAT 98
[2024-09-17 11:39] VITALS: BP 125/86; PULSE 95; RESP 19
== END 2024-09-17 11:39 | disposition short-term general hospital (02) ==
LOC: ED 03:00
DX: J18.9 Pneumonia, unspecified organism (principal); J85.1 Abscess of lung with pneumonia; D72.829 Elevated white blood cell count, unspecified; R00.0 Tachycardia, unspecified; E11.65 Type 2 diabetes mellitus with hyperglycemia; R50.9 Fever, unspecified; R79.1 Abnormal coagulation profile; R10.11 Right upper quadrant pain; R10.13 Epigastric pain; R06.02 Shortness of breath; I10 Essential (primary) hypertension; Z79.84 Long term (current) use of oral hypoglycemic drugs; Z79.891 Long term (current) use of opiate analgesic; Z79.899 Other long term (current) drug therapy
CPT/HCPCS: 0241U; 36415; 71260; 74176; 80053; 81001; 82150; 82805; 82947; 83605; 83690; 83735; 83880; 84145; 84484; 85025; 85379; 86308; 87040; 93005; 93041; 94760; 96365; 96367; 96375; 96376; 99291; 96374; 99285; J1817; J1956; J2270; J2405; A9270-GY